=== PATIENT | male | born 2000 | race Hispanic/Latino ===

== ENCOUNTER 2024-08-18 15:07 | Emergency (ER) | payer BC ==
[2024-08-18 15:54] LABS: Sqamous Epithelial None Seen /HPF (None Seen); Urine Bacteria <20 /HPF (<20); Urine Bilirubin NEGATIVE (Negative); Urine Blood Negative (Negative); Urine Clarity Extremely Turbid (Clear); Urine Color Yellow (Yellow); Urine Crystals Unidentified Many /HPF (None Seen); Urine Culture Reflex Order REFLEXED; Urine Glucose NEGATIVE (Negative); Urine Ketones NEGATIVE (Negative); Urine Micro Reflex YN NO BILL MICROSCOPIC; Urine Mucus 1+ /HPF (None Seen); Urine Nitrite NEGATIVE (Negative); Urine Protein TRACE (Negative); Urine Urobilinogen 2+ (Normal); Urine WBC 20-50 /HPF (<5); Urine Yeast (Budding) Trace /HPF (None Seen)
--- NOTE | 2024-08-18 16:25 | ER ---
Nurse's Notes [facility] Name: Ra Harkins Age: 24 yrs Sex: Male : 2000 Arrival Date: 08/18/2024 Time: 15:07 Bed 11 Private MD: Diagnosis: Paraphimosis Presentation: 08/18 15:18 Chief complaint: Patient states: he is having swelling of the foreskin of his penis ap3 that started this morning. patient denies any issues going to the restroom. Coronavirus screen: At this time, the client does not indicate any symptoms associated with coronavirus-19. Ebola Screen: No symptoms or risks identified at this time. Initial Sepsis Screen: Does the patient meet any 2 criteria? No. Patient's initial sepsis screen is negative. Does the patient have a suspected source of infection? No. Patient's initial sepsis screen is negative. Risk Assessment: Do you want to hurt yourself or someone else?. Onset of symptoms was August 18, 2024. 15:18 Method Of Arrival: Ambulatory ap3 15:18 Acuity: MARIE 4 ap3 Triage Assessment: 15:20 General: Appears in no apparent distress. Behavior is calm, cooperative, appropriate ap3 for age. Pain: Complains of pain in head of penis Pain began this morning. Neuro: Level of Consciousness is awake, alert, obeys commands, Oriented to person, place, time, situation, Gait is steady, Speech is normal. Cardiovascular: Patient's skin is warm and dry. Respiratory: Airway is patent Respiratory effort is even, unlabored, Respiratory pattern is regular, symmetrical. Derm: Reports swelling to the tip of the penis. Historical: - Allergies: 15:19 No Known Allergies; ap3 - PMHx: 15:19 None; ap3 - PSHx: 15:19 None; ap3 - Immunization history:: Adult Immunizations up to date. - Infectious Disease History:: Denies. - Social history:: Smoking status: unknown. Screenin:[facility] ED Fall Risk Assessment (Adult) History of falling in the last 3 months, ap3 including since admission No falls in past 3 months (0 pts) Confusion or Disorientation No (0 pts) Intoxicated or Sedated No (0 pts) Impaired Gait No (0 pts) Mobility Assist Device Used No (0 pt) Altered Elimination No (0 pt) Score/Fall Risk Level 0 - 2 = Low Risk Oriented to surroundings, Maintained a safe environment, Educated pt \T\ family on fall prevention, incl call for assistance when getting out of bed, Assessed \T\ reinforced patient's understanding of fall precautions, Hourly rounding (assess needs \T\ fall precautionary measures) done, Used ambulatory aids as needed (educated on \T\ assisted with), Used gait belt as appropriate. Abuse screen: Denies threats or abuse. Nutritional screening: No deficits noted. Tuberculosis screening: No symptoms or risk factors identified. Assessment: 16:00 General: Appears in no apparent distress. Behavior is calm, cooperative. Pain: iw Complains of pain in head of penis. 16:00 Neuro: Level of Consciousness is awake, alert, obeys commands, Oriented to person, iw place, time, situation, Moves all extremities. Full function. Cardiovascular: Patient's skin is warm and dry. Respiratory: Respiratory effort is even, unlabored, Respiratory pattern is regular. : Reports pain. Derm: Skin is intact, is healthy with good turgor. Musculoskeletal: Range of motion: intact in all extremities. Vital Signs: 15:18 BP 151 / 92; Pulse 89; Resp 17; Temp 97.6; Pulse Ox 100% ; ap3 ED Course: 15:09 Patient arrived in ED. mg5 15:12 Ashok Caputo MD is Attending Physician. ec2 15:19 Triage completed. ap3 15:21 Arm band placed on right wrist. ap3 15:28 Dior Barker, KAROLINA is Primary Nurse. ap3 15:29 Primary Nurse role handed off by Dior Barker RN iw 15:29 Brooke Steen, KAROLINA is Primary Nurse. iw 16:00 Patient has correct armband on for positive identification. iw 16:24 Juan Ovalle MD is Referral Physician. ec2 16:37 No provider procedures requiring assistance completed. Patient did not have IV access iw during this emergency room visit. Administered Medications: No medications were administered Medication: 16:37 VIS not applicable for this client. iw Outcome: 16:24 Discharge ordered by . ec2 16:37 Discharged to home ambulatory, with family, iw 16:37 Condition: good 16:37 Discharge instructions given to patient, Instructed on discharge instructions, follow up and referral plans. Demonstrated understanding of instructions, follow-up care, 16:38 Patient left the ED. bc6 Signatures: Brooke Steen RN RN iw Dior Barker RN RN ap3 Milagro Avalos bc6 Casi Montanez mg5 Ashok Caputo MD MD ec2 Corrections: (The following items were deleted from the chart) 08/19 10:40 10 16:00 Pain: Complains of pain in head of penis ana perez
--- NOTE | 2024-08-18 16:25 | EDPHYS ---
Physician Documentation [facility] Name: Ra Harkins Age: 24 yrs Sex: Male : 2000 Arrival Date: 08/18/2024 Time: 15:07 Bed 11 Private MD: ED Physician Ashok Caputo HPI: 08/18 15:23 This 24 yrs old Male presents to ER via Ambulatory with complaints of ec2 PenileSwelling. 15:23 Patient arrives today for evaluation of penile swelling. States that he woke up this ec2 morning noticed swelling around the penis. Denies any significant pain. No previous medical problems, no daily medications, no history of similar issues. He is uncircumcised. Reports no fevers or chills, no abdominal pain.. Historical: - Allergies: 15:19 No Known Allergies; ap3 - PMHx: 15:19 None; ap3 - PSHx: 15:19 None; ap3 - Immunization history:: Adult Immunizations up to date. - Infectious Disease History:: Denies. - Social history:: Smoking status: unknown. ROS: 15:23 Constitutional: as per hpi ec2 Exam: 15:23 Constitutional: GEN: NAD Head: atraumatic Eyes: EOMI Ears: External ears are ec2 normal. CV: regular rate LUNGS: no respiratory distress ABD: non-distended, soft, nontender, no guarding, not rigid. :. maira- Glans area swelling noted SKIN: no evidence of rashes MSK: no evidence of trauma Vital Signs: 15:18 BP 151 / 92; Pulse 89; Resp 17; Temp 97.6; Pulse Ox 100% ; ap3 Procedures: 15:42 Reduction: of the head of penis, using traction, Patient tolerated well. ec2 MDM: 15:23 Medical Screening Exam initiated ec2 15:23 Data reviewed: vital signs. ED course: Patient arrives today for evaluation of penile ec2 swelling. Examination remarkable for paraphimosis. Will attempt reduction.. 15:42 ED course: Patient with paraphimosis, I was able to reduce with direct traction and no ec2 issue. Patient is able to urinate without issue. Will have the patient follow-up with urology.. 08/18 15:22 Order name: LIT; Complete Time: 16:24 ec2 10/15 15:58 Order name: Urine Culture EDRI 08/18 15:22 Order name: Ice pack; Complete Time: 15:41 ec2 Administered Medications: No medications were administered Disposition Summary: 08/18/24 16:24 Discharge Ordered Notes: Location: Home ec2 Condition: Stable ec2 Diagnosis - Paraphimosis ec2 Followup: ec2 - With: Private Physician - When: - Reason: Re-evaluation by your physician Followup: ec2 - With: Juan Ovalle MD - When: - Reason: Recheck today's complaints Discharge Instructions: - Discharge Summary Sheet ec2 - Paraphimosis ec2 Forms: - Work release form bc6 - Medication Reconciliation Form ec2 - Antibiotic Education ec2 - Prescription Opioid Use ec2 - Patient Portal Instructions ec2 - Leadership Thank You Letter ec2 Signatures: Dispatcher [employer] Dior Medel RN RN ap3 Ashok Caputo MD MD ec2
[2024-08-18 17:16] VITALS: BP 151/92; TEMP 97.6; O2SAT 100
== END 2024-08-18 16:38 | disposition home or self-care (01) ==
LOC: EDSEX 15:07 → ER 15:07
DX: N47.2 Paraphimosis (principal)
CPT/HCPCS: 81001; 87086; 87088; 99282